=== PATIENT | male | born 1950 | race Asian ===

== ENCOUNTER 2017-01-11 07:00 | Inpatient (IN) | payer MEDICARE, MEDICAID ==
[~2017-01-11] VITALS: Ht 172.7 cm; Wt 66.5 kg
[~2017-01-11 07:00] MED LIST: ASPI-825 PO; BICIT30L PO; CALC0.253 PO; CARV12 PO; INSLAN SQ; NIFE10 PO; [UNRECOGNIZED DRUG - CODE] PO
[2017-01-11 07:37] LABS: BASOPHILS % (AUTO) 0.3 % (0.0-2.0); EOSINOPHILS % (AUTO) 3.5 % (1.0-6.0); HEMATOCRIT 29.2 % (41-53); HEMOGLOBIN 9.6 g/dL (13.5-17.5); LYMPHOCYTES # (AUTO) 1.7 K/uL (1.0-4.8); LYMPHOCYTES % (AUTO) 15.1 % (22.0-44.0); MEAN CORPUSCULAR HEMOGLOBIN 31.5 pg (26.0-34.0); MEAN CORPUSCULAR HGB CONC 32.9 G/dL (31.0-37.0); MEAN CORPUSCULAR VOLUME 96 fL (80-100); MONOCYTES # (AUTO) 0.8 K/uL (0.1-1.0); MONOCYTES % (AUTO) 7.3 % (2.0-9.0); NEUTROPHILS # (AUTO) 8.1 K/uL (1.8-7.7); NEUTROPHILS % (AUTO) 73.8 % (40.0-70.0); PLATELET COUNT (AUTO) 269 K/uL (150-450); RED BLOOD CELL COUNT(AUTO) 3.05 MIL/uL (4.50-5.90)
[2017-01-11 07:46] LABS: ANION GAP 9 mmol/L (8-16); CALCIUM, TOTAL 9.3 mg/dL (8.8-10.5); CARBON DIOXIDE 32 mmol/L (22-29); CHLORIDE 98 mmol/L (98-107); CREATININE 7.69 mg/dL (0.60-1.30); GLOMERULAR FILTR. RATE CALC 7 mL/min (>60); POTASSIUM 4.5 mmol/L (3.5-5.1); SODIUM SERUM 139 mmol/L (136-145); UREA NITROGEN, BLOOD 33 mg/dL (7-18)
[2017-01-11 07:54] LABS: ALANINE AMINOTRANSFERASE 22 U/L (12-78); ALBUMIN 3.9 g/dL (3.4-5.0); ASPARTATE AMINOTRANSFERASE 19 U/L (15-37); BILIRUBIN,TOTAL 0.8 mg/dL (0.1-1.0); CREATINE KINASE, TOTAL 61 U/L (39-308)
[2017-01-11] MEDS ORDERED: ACETAMINOPHEN 325 MG TABLET PO PRN ×2 (08:15→10:15)
[2017-01-11] MEDS ORDERED: ONDANSETRON HCL 4 MG/2 ML VIAL IVP PRN (08:15)
[2017-01-11] MEDS ORDERED: EPOETIN ALFA 10,000 UNITS/ML VIAL SQ SCH (10:00)
[2017-01-11] MEDS ORDERED: BISACODYL 10 MG RECTAL RECTAL SUPPOSITORY PR PRN (10:15)
[2017-01-11] MEDS: ASPIRIN 81 MG CHEWABLE TABLET PO SCH (10:15)
[2017-01-11] MEDS ORDERED: ALBUTEROL SULFATE 2.5 MG/0.5 ML NEB SOLUTION NEB PRN (10:15)
[2017-01-11] MEDS ORDERED: DEXTROSE 50%-WATER 25 GM/50 ML SYRINGE IVP PRN (10:15)
[2017-01-11] MEDS: VITAMIN B COMP/VIT C/FOLIC ACID CAPSULE PO SCH (12:25)
[2017-01-11 14:23] LABS: GLUCOSE,POINT OF CARE 73 MG/DL (70-110)
[2017-01-11 15:41] VITALS: BP 145/74
[2017-01-11 19:12] VITALS: BP 144/73
[2017-01-11] MEDS: CARVEDILOL 6.25 MG TABLET PO SCH (20:43)
[2017-01-11] MEDS: DOCUSATE SODIUM 100 MG CAPSULE PO SCH (20:44)
[2017-01-11] MEDS: HEPARIN SODIUM,PORCINE 5,000 UNITS/ML VIAL SQ SCH (20:44)
[2017-01-11] MEDS: INSULIN ASPART 100 UNITS/ML SQ PRN (20:47)
[2017-01-12 00:02] VITALS: BP 143/73
[2017-01-12 04:42] LABS: GLUCOSE COMMENT 1 Received Meds; GLUCOSE,POINT OF CARE 195 MG/DL (70-110)
[2017-01-12 05:03] VITALS: BP 149/89
[2017-01-12] MEDS: INSULIN ASPART 100 UNITS/ML SQ PRN ×2 (06:03→11:48)
[2017-01-12 06:37] LABS: GLUCOSE COMMENT 1 Received Meds; GLUCOSE,POINT OF CARE 144 MG/DL (70-110)
[2017-01-12 07:02] VITALS: BP 147/68
[2017-01-12] MEDS: DOCUSATE SODIUM 100 MG CAPSULE PO SCH (08:39)
[2017-01-12] MEDS: VITAMIN B COMP/VIT C/FOLIC ACID CAPSULE PO SCH (08:39)
[2017-01-12] MEDS: HEPARIN SODIUM,PORCINE 5,000 UNITS/ML VIAL SQ SCH (08:39)
[2017-01-12] MEDS: CARVEDILOL 6.25 MG TABLET PO SCH (08:39)
[2017-01-12] MEDS: ASPIRIN 81 MG CHEWABLE TABLET PO SCH (08:39)
[2017-01-12] MEDS ORDERED: PANTOPRAZOLE SODIUM 40 MG DR TABLET PO SCH (09:00)
[2017-01-12 10:56] VITALS: BP 153/74
[2017-01-12 12:13] LABS: GLUCOSE,POINT OF CARE 124 MG/DL (70-110)
[2017-01-12 15:01] VITALS: BP 163/78
[2017-01-12 18:12] LABS: GLUCOSE,POINT OF CARE 102 MG/DL (70-110)
== END 2017-01-12 16:45 | disposition home or self-care (01) | DRG 291 ==
LOC: EMS 07:00 → 5N 08:31
PROVIDERS: ADMIT Internal Medicine; ATTEND Internal Medicine
PROC: 5A1D00Z (ICD-10-PCS; principal; 2017-01-11)
DX: I13.2 Hypertensive heart and chronic kidney disease with heart failure and with stage 5 chronic kidney disease, or end stage renal disease (principal); N18.6 End stage renal disease; J96.91 Respiratory failure, unspecified with hypoxia; E11.21 Type 2 diabetes mellitus with diabetic nephropathy; E11.22 Type 2 diabetes mellitus with diabetic chronic kidney disease; E78.5 Hyperlipidemia, unspecified; E11.51 Type 2 diabetes mellitus with diabetic peripheral angiopathy without gangrene; D63.8 Anemia in other chronic diseases classified elsewhere; I50.9 Heart failure, unspecified; Z79.4 Long term (current) use of insulin; Z99.2 Dependence on renal dialysis; Z87.442 Personal history of urinary calculi; Z79.82 Long term (current) use of aspirin
CPT/HCPCS: 82962; 83540; 83550; 87081; 87340; 90935; 93005; 99291; J0885; J1644

== ENCOUNTER → 2017-06-27 | Outpatient (CLI) | payer MEDICARE, MEDICAID | END | disposition home or self-care (01) | LOC: RADPV 15:22 | PROVIDERS: ATTEND Hospitalist | DX: R76.11 Nonspecific reaction to tuberculin skin test without active tuberculosis (principal) ==

== ENCOUNTER 2019-06-03 05:58 | Inpatient (IN) | payer MEDICARE, MEDICAID ==
[~2019-06-03] VITALS: Ht 162.6 cm; Wt 54.1 kg
[~2019-06-03 05:58] MED LIST changes: +FOLI1CAP2 PO; +LEVO500 PO; +SEVE800T17 PO
[2019-06-03] MEDS ORDERED: ACETAMINOPHEN 650 MG/ISO-OSM 65 ML IV ONE (06:30)
[2019-06-03] MEDS ORDERED: SODIUM CHLORIDE 0.9% 1,800 ML IV ONE (06:30)
[2019-06-03 06:38] LABS: BASOPHILS % (AUTO) 0.7 % (0.0-2.0); EOSINOPHILS % (AUTO) 0.8 % (1.0-6.0); HEMATOCRIT 34.9 % (41-53); HEMOGLOBIN 11.9 g/dL (13.5-17.5); LYMPHOCYTES # (AUTO) 1.4 K/uL (1.0-4.8); LYMPHOCYTES % (AUTO) 13.5 % (22.0-44.0); MEAN CORPUSCULAR HEMOGLOBIN 33.5 pg (26.0-34.0); MEAN CORPUSCULAR HGB CONC 34.2 G/dL (31.0-37.0); MEAN CORPUSCULAR VOLUME 98 fL (80-100); MONOCYTES # (AUTO) 0.9 K/uL (0.1-1.0); MONOCYTES % (AUTO) 8.9 % (2.0-9.0); NEUTROPHILS # (AUTO) 7.6 K/uL (1.8-7.7); NEUTROPHILS % (AUTO) 76.1 % (40.0-70.0); PLATELET COUNT (AUTO) 179 K/uL (150-450); RED BLOOD CELL COUNT(AUTO) 3.55 MIL/uL (4.50-5.90); RED CELL DISTRIBUTION WIDTH 13.2 % (11.5-14.5)
[2019-06-03 06:48] LABS: CALCIUM, TOTAL 8.6 mg/dL (8.8-10.5); CREATININE 12.38 mg/dL (0.60-1.30)
[2019-06-03 06:55] LABS: INR 1.1 (0.9-1.1)
[2019-06-03 06:56] LABS: LACTIC ACID 0.9 mmol/L (0.4-2.0)
[2019-06-03 07:13] LABS: ALBUMIN 3.9 g/dL (3.4-5.0); BILIRUBIN,TOTAL 0.6 mg/dL (0.1-1.0); TOTAL PROTEIN, SERUM 7.5 g/dL (6.4-8.2)
[2019-06-03] MEDS ORDERED: NIFEdipine 10 MG CAPSULE PO ONE (07:15)
[2019-06-03] MEDS ORDERED: NITROGLYCERIN 2% (1 GM=INCH) PACKET TP ONE (07:15)
[2019-06-03] MEDS ORDERED: CARVEDILOL 3.125 MG TABLET PO ONE (07:15)
[2019-06-03] MEDS ORDERED: CefTRIAXone 1 GM/DEXTROSE 50 ML IV ONE (07:15)
[2019-06-03] MEDS ORDERED: AZITHROMYCIN 500 MG/NS 250 ML IV ONE (07:15)
[2019-06-03 11:33] VITALS: BP 173/83
[2019-06-03 15:46] VITALS: BP 231/115
[2019-06-03] MEDS: CloNIDine HCL 0.1 MG TABLET PO PRN (16:22)
[2019-06-03] MEDS: ACETAMINOPHEN 325 MG TABLET PO PRN (16:22)
[2019-06-03] MEDS ORDERED: NIFE60TA82 PO (16:52)
[2019-06-03] MEDS ORDERED: SIMV20TA6 PO (16:52)
[2019-06-03] MEDS ORDERED: FOLI0.8T22 PO (16:52)
[2019-06-03] MEDS ORDERED: LOSA50TA64 PO (16:52)
[2019-06-03 16:56] LABS: GLUCOMETER DEV NAME(LOC) 5N.1; GLUCOSE,POINT OF CARE 86 MG/DL (70-110)
[2019-06-03] MEDS: LABETALOL HCL 5 MG/ML 20 ML VIAL IVP PRN ×2 (17:13→18:50)
[2019-06-03] MEDS ORDERED: SODIUM CHLORIDE 0.9% 100 ML ONE (18:43)
[2019-06-03] MEDS ORDERED: IOVERSOL 320 MG/ML 100 ML VIAL ONE (18:43)
[2019-06-03] MEDS ORDERED: LABETALOL HCL 5 MG/ML 20 ML VIAL IVP PRN (19:30)
[2019-06-03 19:43] LABS: BASOPHILS % (AUTO) 0.5 % (0.0-2.0); EOSINOPHILS % (AUTO) 0.4 % (1.0-6.0); HEMATOCRIT 36.1 % (41-53); HEMOGLOBIN 12.2 g/dL (13.5-17.5); LYMPHOCYTES % (AUTO) 8.8 % (22.0-44.0); MEAN CORPUSCULAR HEMOGLOBIN 33.5 pg (26.0-34.0); MEAN CORPUSCULAR HGB CONC 33.8 G/dL (31.0-37.0); MEAN CORPUSCULAR VOLUME 99 fL (80-100); MONOCYTES % (AUTO) 9.2 % (2.0-9.0); NEUTROPHILS # (AUTO) 8.8 K/uL (1.8-7.7); NEUTROPHILS % (AUTO) 81.1 % (40.0-70.0); PLATELET COUNT (AUTO) 156 K/uL (150-450); RED BLOOD CELL COUNT(AUTO) 3.64 MIL/uL (4.50-5.90); RED CELL DISTRIBUTION WIDTH 13.3 % (11.5-14.5)
[2019-06-03 19:57] LABS: INR 1.1 (0.9-1.1); PROTHROMBIN TIME 11.1 SEC (9.4-11.6)
[2019-06-03 20:00] LABS: PLATELET MORPHOLOGY COMMENT NORMAL
[2019-06-03 20:06] VITALS: BP 221/109
[2019-06-03 20:12] LABS: ALANINE AMINOTRANSFERASE 20 U/L (12-78); ALBUMIN 3.9 g/dL (3.4-5.0); ALKALINE PHOSPHATASE 121 U/L (46-116); ANION GAP 14 mmol/L (8-16); ASPARTATE AMINOTRANSFERASE 22 U/L (15-37); BILIRUBIN,TOTAL 0.9 mg/dL (0.1-1.0); CALCIUM, TOTAL 9.1 mg/dL (8.8-10.5); CARBON DIOXIDE 24 mmol/L (22-29); CHLORIDE 97 mmol/L (98-107); GLOMERULAR FILTR. RATE CALC 8 mL/min (>60); GLUCOSE,RANDOM 91 mg/dL (70-110); HCG,QUANTITATIVE < 1 mIU/mL (0-6); POTASSIUM 3.6 mmol/L (3.5-5.1); SODIUM SERUM 135 mmol/L (136-145); TOTAL PROTEIN, SERUM 7.7 g/dL (6.4-8.2); UREA NITROGEN, BLOOD 22 mg/dL (7-18)
[2019-06-03] MEDS: NiCARDipine HCL 25 MG in DEXTROSE 5%-WATER 240 ML IV PRN (20:34)
[2019-06-03] MEDS ORDERED: SODIUM CHLORIDE 0.9% 250 ML IV ONE (20:45)
[2019-06-03] MEDS: INSULIN GLARGINE,HUM.REC.ANLOG 100 UNITS/ML SQ SCH (21:00)
[2019-06-03] MEDS: CARVEDILOL 12.5 MG TABLET PO SCH (21:00)
[2019-06-03] MEDS: CALCIUM CIT/VITAMIN D3 200 MG-250 UNITS TABLET PO SCH (21:00)
[2019-06-03] MEDS: ACETAMINOPHEN 650 MG/ISO-OSM 65 ML IV SCH (21:05)
[2019-06-03] MEDS: OXYGEN THERAPY IH SCH (21:09)
[2019-06-04] VITALS (7 sets, daily range): BP systolic 128–189; BP diastolic 59–80
[2019-06-04] MEDS: ACETAMINOPHEN 650 MG/ISO-OSM 65 ML IV SCH ×3 (02:37→17:41)
[2019-06-04 04:06] LABS: GLUCOSE,POINT OF CARE 104 MG/DL (70-110)
[2019-06-04] MEDS: NiCARDipine HCL 25 MG in DEXTROSE 5%-WATER 240 ML IV PRN (05:38)
[2019-06-04 06:56] LABS: GLUCOSE,POINT OF CARE 74 MG/DL (70-110)
[2019-06-04 06:56] LABS: GLUCOSE,POINT OF CARE 105 MG/DL (70-110)
[2019-06-04 07:11] LABS: BASOPHILS % (AUTO) 0.6 % (0.0-2.0); EOSINOPHILS % (AUTO) 1.4 % (1.0-6.0); HEMATOCRIT 35.2 % (41-53); HEMOGLOBIN 12.2 g/dL (13.5-17.5); LYMPHOCYTES % (AUTO) 9.9 % (22.0-44.0); MEAN CORPUSCULAR HEMOGLOBIN 33.8 pg (26.0-34.0); MEAN CORPUSCULAR HGB CONC 34.7 G/dL (31.0-37.0); MEAN CORPUSCULAR VOLUME 98 fL (80-100); MONOCYTES # (AUTO) 1.2 K/uL (0.1-1.0); MONOCYTES % (AUTO) 12.4 % (2.0-9.0); NEUTROPHILS # (AUTO) 7.3 K/uL (1.8-7.7); NEUTROPHILS % (AUTO) 75.7 % (40.0-70.0); PLATELET COUNT (AUTO) 154 K/uL (150-450); RED CELL DISTRIBUTION WIDTH 13.4 % (11.5-14.5)
[2019-06-04 07:23] LABS: CALCIUM, TOTAL 8.5 mg/dL (8.8-10.5); CREATININE 8.9 mg/dL (0.60-1.30); POTASSIUM 4.4 mmol/L (3.5-5.1)
[2019-06-04] MEDS: OXYGEN THERAPY IH SCH ×2 (08:00→21:09)
[2019-06-04] MEDS: CefTRIAXone 1 GM/DEXTROSE 50 ML IV SCH (08:55)
[2019-06-04] MEDS: CloNIDine HCL 0.1 MG TABLET PO PRN ×2 (08:56→17:48)
[2019-06-04] MEDS: SEVELAMER CARBONATE 800 MG TABLET PO SCH ×3 (08:57→17:40)
[2019-06-04] MEDS: SIMVASTATIN 20 MG TABLET PO SCH (08:57)
[2019-06-04] MEDS: VITAMIN B COMP/VIT C/FOLIC ACID CAPSULE PO SCH (08:57)
[2019-06-04] MEDS: ASPIRIN 81 MG CHEWABLE TABLET PO SCH (08:57)
[2019-06-04] MEDS: CARVEDILOL 12.5 MG TABLET PO SCH ×2 (08:58→21:08)
[2019-06-04] MEDS: LOSARTAN POTASSIUM 50 MG TABLET PO SCH (08:59)
[2019-06-04] MEDS: NIFEdipine 60 MG ER TABLET PO SCH (08:59)
[2019-06-04] MEDS: CALCIUM CIT/VITAMIN D3 200 MG-250 UNITS TABLET PO SCH ×3 (09:00→23:22)
[2019-06-04] MEDS ORDERED: AZITHROMYCIN 500 MG/NS 250 ML IV SCH (09:00)
[2019-06-04 13:00] LABS: GLUCOSE,POINT OF CARE 247 MG/DL (70-110)
[2019-06-04] MEDS ORDERED: DEXTROSE 50%-WATER 25 GM/50 ML SYRINGE IVP PRN ×2 (15:15)
[2019-06-04] MEDS: INSULIN LISPRO 100 UNITS/ML SQ PRN (17:42)
[2019-06-04 17:46] LABS: GLUCOSE,POINT OF CARE 165 MG/DL (70-110)
[2019-06-04 20:31] LABS: GLUCOSE,POINT OF CARE 127 MG/DL (70-110)
[2019-06-04] MEDS: INSULIN GLARGINE,HUM.REC.ANLOG 100 UNITS/ML SQ SCH (21:05)
[2019-06-04] MEDS: ACETAMINOPHEN 325 MG TABLET PO PRN (23:35)
[2019-06-05] VITALS (9 sets, daily range): BP systolic 147–175; BP diastolic 69–97
[2019-06-05] MEDS ORDERED: SODIUM CHLORIDE 0.9% 100 ML ONE (00:35)
[2019-06-05] MEDS ORDERED: IOVERSOL 350 MG/ML 100 ML VIAL ONE (00:35)
[2019-06-05] MEDS ORDERED: SODIUM CHLORIDE 0.9% 250 ML IV ONE (07:57)
[2019-06-05] MEDS: OXYGEN THERAPY IH SCH ×2 (08:00→20:39)
[2019-06-05] MEDS: CefTRIAXone 1 GM/DEXTROSE 50 ML IV SCH (08:05)
[2019-06-05] MEDS: VITAMIN B COMP/VIT C/FOLIC ACID CAPSULE PO SCH (08:12)
[2019-06-05] MEDS: SEVELAMER CARBONATE 800 MG TABLET PO SCH ×2 (08:12→20:39)
[2019-06-05] MEDS: SIMVASTATIN 20 MG TABLET PO SCH (08:13)
[2019-06-05] MEDS: ASPIRIN 81 MG CHEWABLE TABLET PO SCH (08:13)
[2019-06-05] MEDS: CALCIUM CIT/VITAMIN D3 200 MG-250 UNITS TABLET PO SCH ×3 (08:13→21:00)
[2019-06-05] MEDS: NIFEdipine 60 MG ER TABLET PO SCH (08:13)
[2019-06-05] MEDS: ACETAMINOPHEN 325 MG TABLET PO PRN ×2 (08:13→17:16)
[2019-06-05] MEDS: CARVEDILOL 12.5 MG TABLET PO SCH ×2 (08:13→20:39)
[2019-06-05] MEDS: LOSARTAN POTASSIUM 50 MG TABLET PO SCH (08:14)
[2019-06-05 08:20] LABS: BASOPHILS % (AUTO) 0.6 % (0.0-2.0); EOSINOPHILS % (AUTO) 0.3 % (1.0-6.0); HEMATOCRIT 33.5 % (41-53); HEMOGLOBIN 11.5 g/dL (13.5-17.5); LYMPHOCYTES # (AUTO) 0.8 K/uL (1.0-4.8); LYMPHOCYTES % (AUTO) 8.6 % (22.0-44.0); MEAN CORPUSCULAR HEMOGLOBIN 33.3 pg (26.0-34.0); MEAN CORPUSCULAR HGB CONC 34.3 G/dL (31.0-37.0); MEAN CORPUSCULAR VOLUME 97 fL (80-100); MONOCYTES # (AUTO) 1.1 K/uL (0.1-1.0); MONOCYTES % (AUTO) 10.8 % (2.0-9.0); NEUTROPHILS # (AUTO) 7.9 K/uL (1.8-7.7); NEUTROPHILS % (AUTO) 79.7 % (40.0-70.0); PLATELET COUNT (AUTO) 132 K/uL (150-450); RED BLOOD CELL COUNT(AUTO) 3.46 MIL/uL (4.50-5.90); RED CELL DISTRIBUTION WIDTH 13.5 % (11.5-14.5)
[2019-06-05 08:42] LABS: ALBUMIN 3.3 g/dL (3.4-5.0); BILIRUBIN,TOTAL 0.5 mg/dL (0.1-1.0); CALCIUM, TOTAL 8.9 mg/dL (8.8-10.5); CREATININE 11.71 mg/dL (0.60-1.30); POTASSIUM 4.9 mmol/L (3.5-5.1); TOTAL PROTEIN, SERUM 7.1 g/dL (6.4-8.2)
[2019-06-05] MEDS ORDERED: *CLINICAL-CEFEPIME DOSING CLINICAL ONE (09:15)
[2019-06-05 09:16] LABS: GLUCOMETER DEV NAME(LOC) 5S.1; GLUCOSE,POINT OF CARE 96 MG/DL (70-110)
[2019-06-05 09:16] LABS: GLUCOMETER DEV NAME(LOC) 5S.1; GLUCOSE,POINT OF CARE 84 MG/DL (70-110)
[2019-06-05] MEDS ORDERED: VANCOMYCIN HCL 1 GM/D5% WATER 200 ML IV PRN (09:30)
[2019-06-05] MEDS ORDERED: VANCOMYCIN HCL 1.25 GM in DEXTROSE 5%-WATER 250 ML IV ONE (10:00)
[2019-06-05 11:31] LABS: GLUCOMETER DEV NAME(LOC) 5S.1; GLUCOSE,POINT OF CARE 76 MG/DL (70-110)
[2019-06-05] MEDS ORDERED: CEFEPIME HCL 1 GM in DEXTROSE 5%-WATER 50 ML IV ONE (14:00)
[2019-06-05] MEDS ORDERED: LEVOFLOXACIN 750 MG/D5% WATER 150 ML IV ONE (15:00)
[2019-06-05] MEDS: CEFEPIME HCL 0.5 GM in DEXTROSE 5%-WATER 50 ML IV SCH (17:02)
[2019-06-05 17:59] LABS: ABG A-A DIFF O2 117.2 mmHg (10-20.0); ABG BASE EXCESS 2.7 mmol/L (-2.0-3.0); ABG CARBOXYHEMOGLOBIN 1.2 % (0.0-1.5); ABG METHEMOGLOBIN 0.3 % (0.0-1.5); ABG OXYGEN CONTENT 17.5 mL/dL (15.0-23.0); ABG OXYGEN SATURATION 90.6 % (95.0-98.0); ABG OXYHEMOGLOBIN 89.2 % (94.0-100.0); ABG PCO2 38 mmHg (35-45); ABG PH 7.461 (7.35-7.450); PO2, ARTERIAL BG 64.8 mmHg (79.0-87.0); SOURCE, BLOOD GAS ARTERIAL; TEMPERATURE, FAHRENHEIT, BG 101.8 FAHREN (96.0-98.6)
[2019-06-05 18:00] LABS: SITE, BLOOD GAS RT RADIAL
[2019-06-05 18:01] LABS: O2 DEVICE,BLOOD GAS CANNULA (ROOM AIR)
[2019-06-05 20:56] LABS: GLUCOMETER DEV NAME(LOC) 5S.2A; GLUCOSE,POINT OF CARE 129 MG/DL (70-110)
[2019-06-05] MEDS: INSULIN GLARGINE,HUM.REC.ANLOG 100 UNITS/ML SQ SCH (21:00)
[2019-06-06] VITALS (7 sets, daily range): BP systolic 112–155; BP diastolic 50–74
[2019-06-06] MEDS: ACETAMINOPHEN 325 MG TABLET PO PRN ×2 (00:30→15:43)
[2019-06-06] MEDS ORDERED: 0.9% SODIUM CHLORIDE 5 ML NEB SOLUTION NEB ONE ×2 (05:30→09:01)
[2019-06-06] MEDS ORDERED: ONDANSETRON HCL 4 MG/2 ML VIAL IM PRN (05:30)
[2019-06-06] MEDS: INSULIN LISPRO 100 UNITS/ML SQ PRN ×3 (06:34→21:03)
[2019-06-06 06:59] LABS: BASOPHILS % (AUTO) 0.3 % (0.0-2.0); EOSINOPHILS % (AUTO) 0.5 % (1.0-6.0); HEMATOCRIT 35.8 % (41-53); HEMOGLOBIN 12.2 g/dL (13.5-17.5); LYMPHOCYTES # (AUTO) 0.6 K/uL (1.0-4.8); LYMPHOCYTES % (AUTO) 5.8 % (22.0-44.0); MEAN CORPUSCULAR HEMOGLOBIN 33.1 pg (26.0-34.0); MEAN CORPUSCULAR HGB CONC 34.1 G/dL (31.0-37.0); MEAN CORPUSCULAR VOLUME 97 fL (80-100); MONOCYTES # (AUTO) 1.2 K/uL (0.1-1.0); MONOCYTES % (AUTO) 11.8 % (2.0-9.0); NEUTROPHILS # (AUTO) 8.3 K/uL (1.8-7.7); NEUTROPHILS % (AUTO) 81.6 % (40.0-70.0); PLATELET COUNT (AUTO) 167 K/uL (150-450); RED BLOOD CELL COUNT(AUTO) 3.69 MIL/uL (4.50-5.90)
[2019-06-06 07:19] LABS: CALCIUM, TOTAL 9.3 mg/dL (8.8-10.5); CREATININE 8.08 mg/dL (0.60-1.30); PHOSPHORUS 3.3 mg/dL (2.5-4.9); POTASSIUM 5.1 mmol/L (3.5-5.1)
[2019-06-06 07:55] LABS: VANCOMYCIN,RANDOM 11.5 mcg/mL (25.0-50.0)
[2019-06-06 08:39] LABS: INFLUENZA TYPE A NEGATIVE FOR TYPE A (NEGATIVE); INFLUENZA TYPE B NEGATIVE FOR TYPE B (NEGATIVE)
[2019-06-06] MEDS ORDERED: VANCOMYCIN HCL 1 GM/D5% WATER 200 ML IV ONE (09:00)
[2019-06-06] MEDS: ALBUTEROL SULFATE 2.5 MG/0.5 ML NEB SOLUTION NEB PRN ×2 (09:05→21:30)
[2019-06-06] MEDS: SEVELAMER CARBONATE 800 MG TABLET PO SCH ×3 (09:40→18:00)
[2019-06-06] MEDS: OXYGEN THERAPY IH SCH ×2 (09:41→21:00)
[2019-06-06] MEDS: ASPIRIN 81 MG CHEWABLE TABLET PO SCH (09:41)
[2019-06-06] MEDS: CALCIUM CIT/VITAMIN D3 200 MG-250 UNITS TABLET PO SCH ×3 (09:41→21:00)
[2019-06-06] MEDS: CARVEDILOL 12.5 MG TABLET PO SCH ×2 (09:41→21:00)
[2019-06-06] MEDS: VITAMIN B COMP/VIT C/FOLIC ACID CAPSULE PO SCH (09:42)
[2019-06-06] MEDS: SIMVASTATIN 20 MG TABLET PO SCH (09:42)
[2019-06-06] MEDS: LOSARTAN POTASSIUM 50 MG TABLET PO SCH (09:42)
[2019-06-06] MEDS: NIFEdipine 60 MG ER TABLET PO SCH (09:42)
[2019-06-06 10:45] LABS: GLUCOMETER DEV NAME(LOC) 5S.1; GLUCOSE,POINT OF CARE 78 MG/DL (70-110)
[2019-06-06 10:45] LABS: GLUCOMETER DEV NAME(LOC) 5S.1; GLUCOSE,POINT OF CARE 150 MG/DL (70-110)
[2019-06-06] MEDS: CEFEPIME HCL 0.5 GM in DEXTROSE 5%-WATER 50 ML IV SCH (15:43)
[2019-06-06] MEDS: INSULIN GLARGINE,HUM.REC.ANLOG 100 UNITS/ML SQ SCH (21:03)
[2019-06-06 21:25] LABS: GLUCOMETER DEV NAME(LOC) 5S.1; GLUCOSE,POINT OF CARE 221 MG/DL (70-110)
[2019-06-07] VITALS (7 sets, daily range): BP systolic 128–156; BP diastolic 61–74
[2019-06-07] MEDS ORDERED: 0.9% SODIUM CHLORIDE 5 ML NEB SOLUTION NEB ONE (02:36)
[2019-06-07] MEDS: ALBUTEROL SULFATE 2.5 MG/0.5 ML NEB SOLUTION NEB PRN (02:40)
[2019-06-07] MEDS: ACETAMINOPHEN 325 MG TABLET PO PRN (04:12)
[2019-06-07 07:05] LABS: GLUCOMETER DEV NAME(LOC) 5S.1; GLUCOSE,POINT OF CARE 138 MG/DL (70-110)
[2019-06-07 07:43] LABS: BASOPHILS % (AUTO) 0.6 % (0.0-2.0); EOSINOPHILS % (AUTO) 0.4 % (1.0-6.0); HEMATOCRIT 32.7 % (41-53); HEMOGLOBIN 11.3 g/dL (13.5-17.5); LYMPHOCYTES # (AUTO) 0.8 K/uL (1.0-4.8); MEAN CORPUSCULAR HEMOGLOBIN 33.2 pg (26.0-34.0); MEAN CORPUSCULAR HGB CONC 34.7 G/dL (31.0-37.0); MEAN CORPUSCULAR VOLUME 96 fL (80-100); MONOCYTES # (AUTO) 0.9 K/uL (0.1-1.0); MONOCYTES % (AUTO) 11.6 % (2.0-9.0); NEUTROPHILS # (AUTO) 6.2 K/uL (1.8-7.7); NEUTROPHILS % (AUTO) 77.4 % (40.0-70.0); PLATELET COUNT (AUTO) 144 K/uL (150-450); RED BLOOD CELL COUNT(AUTO) 3.42 MIL/uL (4.50-5.90); RED CELL DISTRIBUTION WIDTH 13.1 % (11.5-14.5)
[2019-06-07] MEDS ORDERED: SODIUM CHLORIDE 0.9% 2,000 ML IV ONE (08:00)
[2019-06-07 08:18] LABS: BILIRUBIN,TOTAL 0.4 mg/dL (0.1-1.0); CALCIUM, TOTAL 9.4 mg/dL (8.8-10.5); CREATININE 11.25 mg/dL (0.60-1.30); POTASSIUM 4.7 mmol/L (3.5-5.1); VANCOMYCIN,RANDOM 29.3 mcg/mL (25.0-50.0)
[2019-06-07] MEDS: LOSARTAN POTASSIUM 50 MG TABLET PO SCH (09:00)
[2019-06-07] MEDS: CALCIUM CIT/VITAMIN D3 200 MG-250 UNITS TABLET PO SCH ×3 (09:44→20:22)
[2019-06-07] MEDS: SEVELAMER CARBONATE 800 MG TABLET PO SCH ×3 (09:44→17:49)
[2019-06-07] MEDS: SIMVASTATIN 20 MG TABLET PO SCH (09:44)
[2019-06-07] MEDS: VITAMIN B COMP/VIT C/FOLIC ACID CAPSULE PO SCH (09:44)
[2019-06-07] MEDS: ASPIRIN 81 MG CHEWABLE TABLET PO SCH (09:44)
[2019-06-07] MEDS: OXYGEN THERAPY IH SCH ×2 (09:44→20:22)
[2019-06-07] MEDS: CARVEDILOL 12.5 MG TABLET PO SCH ×2 (12:16→20:22)
[2019-06-07] MEDS ORDERED: LEVOFLOXACIN 500 MG/D5% WATER 100 ML IV SCH (15:00)
[2019-06-07] MEDS: CEFEPIME HCL 0.5 GM in DEXTROSE 5%-WATER 50 ML IV SCH (16:13)
[2019-06-07] MEDS: NIFEdipine 60 MG ER TABLET PO SCH (16:13)
[2019-06-07] MEDS: AZITHROMYCIN 250 MG TABLET PO SCH (16:13)
[2019-06-07] MEDS: INSULIN LISPRO 100 UNITS/ML SQ PRN ×2 (17:51→20:28)
[2019-06-07 20:16] LABS: GLUCOMETER DEV NAME(LOC) 5N.1; GLUCOSE,POINT OF CARE 217 MG/DL (70-110)
[2019-06-07 20:16] LABS: GLUCOMETER DEV NAME(LOC) 5S.1; GLUCOSE,POINT OF CARE 150 MG/DL (70-110)
[2019-06-07] MEDS: INSULIN GLARGINE,HUM.REC.ANLOG 100 UNITS/ML SQ SCH (20:26)
[2019-06-08 04:02] VITALS: BP 121/62
[2019-06-08 04:11] LABS: GLUCOMETER DEV NAME(LOC) 5S.2A; GLUCOSE,POINT OF CARE 158 MG/DL (70-110)
[2019-06-08 04:11] LABS: GLUCOMETER DEV NAME(LOC) 5S.2A; GLUCOSE,POINT OF CARE 147 MG/DL (70-110)
[2019-06-08 04:11] LABS: GLUCOMETER DEV NAME(LOC) 5S.2A; GLUCOSE,POINT OF CARE 230 MG/DL (70-110)
[2019-06-08 04:11] LABS: GLUCOMETER DEV NAME(LOC) 5N.1; GLUCOSE,POINT OF CARE 169 MG/DL (70-110)
[2019-06-08 07:51] VITALS: BP 137/64
[2019-06-08 08:13] LABS: ALBUMIN 3.2 g/dL (3.4-5.0); BILIRUBIN,TOTAL 0.5 mg/dL (0.1-1.0); CALCIUM, TOTAL 9.7 mg/dL (8.8-10.5); CREATININE 7.89 mg/dL (0.60-1.30); POTASSIUM 4.1 mmol/L (3.5-5.1); TOTAL PROTEIN, SERUM 7.6 g/dL (6.4-8.2); VANCOMYCIN,RANDOM 21.1 mcg/mL (25.0-50.0)
[2019-06-08 08:21] LABS: GLUCOMETER DEV NAME(LOC) 5N.1; GLUCOSE,POINT OF CARE 92 MG/DL (70-110)
[2019-06-08 08:35] LABS: BASOPHILS % (AUTO) 0.4 % (0.0-2.0); EOSINOPHILS % (AUTO) 1.5 % (1.0-6.0); HEMATOCRIT 33.5 % (41-53); HEMOGLOBIN 11.5 g/dL (13.5-17.5); LYMPHOCYTES # (AUTO) 1.4 K/uL (1.0-4.8); LYMPHOCYTES % (AUTO) 15.2 % (22.0-44.0); MEAN CORPUSCULAR HEMOGLOBIN 33.1 pg (26.0-34.0); MEAN CORPUSCULAR HGB CONC 34.4 G/dL (31.0-37.0); MEAN CORPUSCULAR VOLUME 96 fL (80-100); MONOCYTES # (AUTO) 1.4 K/uL (0.1-1.0); NEUTROPHILS # (AUTO) 6.2 K/uL (1.8-7.7); NEUTROPHILS % (AUTO) 67.9 % (40.0-70.0); PLATELET COUNT (AUTO) 176 K/uL (150-450); RED BLOOD CELL COUNT(AUTO) 3.47 MIL/uL (4.50-5.90); RED CELL DISTRIBUTION WIDTH 13.3 % (11.5-14.5)
[2019-06-08] MEDS: LOSARTAN POTASSIUM 50 MG TABLET PO SCH (08:56)
[2019-06-08] MEDS: NIFEdipine 60 MG ER TABLET PO SCH (08:56)
[2019-06-08] MEDS: CALCIUM CIT/VITAMIN D3 200 MG-250 UNITS TABLET PO SCH ×3 (08:56→21:21)
[2019-06-08] MEDS: SEVELAMER CARBONATE 800 MG TABLET PO SCH ×3 (08:56→17:45)
[2019-06-08] MEDS: VITAMIN B COMP/VIT C/FOLIC ACID CAPSULE PO SCH (08:56)
[2019-06-08] MEDS: ASPIRIN 81 MG CHEWABLE TABLET PO SCH (08:56)
[2019-06-08] MEDS: SIMVASTATIN 20 MG TABLET PO SCH (08:56)
[2019-06-08] MEDS: CARVEDILOL 12.5 MG TABLET PO SCH ×2 (08:56→21:21)
[2019-06-08] MEDS: AZITHROMYCIN 250 MG TABLET PO SCH (08:56)
[2019-06-08] MEDS: OXYGEN THERAPY IH SCH (09:06)
[2019-06-08 11:43] VITALS: BP 111/57
[2019-06-08] MEDS: INSULIN LISPRO 100 UNITS/ML SQ PRN ×3 (12:15→21:24)
[2019-06-08 15:43] VITALS: BP 125/61
[2019-06-08] MEDS ORDERED: SODIUM CHLORIDE 0.9% 100 ML ONE (15:50)
[2019-06-08] MEDS: CEFEPIME HCL 0.5 GM in DEXTROSE 5%-WATER 50 ML IV SCH (15:56)
[2019-06-08 16:16] LABS: GLUCOMETER DEV NAME(LOC) 5N.1; GLUCOSE,POINT OF CARE 216 MG/DL (70-110)
[2019-06-08 19:59] VITALS: BP 134/65
[2019-06-08 20:16] LABS: GLUCOMETER DEV NAME(LOC) 5S.2A; GLUCOSE,POINT OF CARE 201 MG/DL (70-110)
[2019-06-08] MEDS: INSULIN GLARGINE,HUM.REC.ANLOG 100 UNITS/ML SQ SCH (21:23)
[2019-06-08 23:36] LABS: GLUCOMETER DEV NAME(LOC) 5S.1; GLUCOSE,POINT OF CARE 236 MG/DL (70-110)
[2019-06-09] VITALS (7 sets, daily range): BP systolic 123–137; BP diastolic 57–69
[2019-06-09 06:45] LABS: BASOPHILS % (AUTO) 0.4 % (0.0-2.0); EOSINOPHILS % (AUTO) 2.3 % (1.0-6.0); HEMATOCRIT 33.6 % (41-53); HEMOGLOBIN 11.3 g/dL (13.5-17.5); LYMPHOCYTES # (AUTO) 1.5 K/uL (1.0-4.8); LYMPHOCYTES % (AUTO) 14.5 % (22.0-44.0); MEAN CORPUSCULAR HEMOGLOBIN 32.7 pg (26.0-34.0); MEAN CORPUSCULAR HGB CONC 33.8 G/dL (31.0-37.0); MEAN CORPUSCULAR VOLUME 97 fL (80-100); MONOCYTES # (AUTO) 1.3 K/uL (0.1-1.0); MONOCYTES % (AUTO) 12.9 % (2.0-9.0); NEUTROPHILS # (AUTO) 7.1 K/uL (1.8-7.7); NEUTROPHILS % (AUTO) 69.9 % (40.0-70.0); PLATELET COUNT (AUTO) 198 K/uL (150-450); RED BLOOD CELL COUNT(AUTO) 3.47 MIL/uL (4.50-5.90); RED CELL DISTRIBUTION WIDTH 13.2 % (11.5-14.5)
[2019-06-09 07:12] LABS: CALCIUM, TOTAL 9.4 mg/dL (8.8-10.5); CREATININE 9.69 mg/dL (0.60-1.30); POTASSIUM 4.1 mmol/L (3.5-5.1); VANCOMYCIN,RANDOM 19.6 mcg/mL (25.0-50.0)
[2019-06-09] MEDS: NIFEdipine 60 MG ER TABLET PO SCH (08:54)
[2019-06-09] MEDS: SIMVASTATIN 20 MG TABLET PO SCH (08:54)
[2019-06-09] MEDS: CALCIUM CIT/VITAMIN D3 200 MG-250 UNITS TABLET PO SCH ×3 (08:54→22:40)
[2019-06-09] MEDS: LOSARTAN POTASSIUM 50 MG TABLET PO SCH (08:54)
[2019-06-09] MEDS: VITAMIN B COMP/VIT C/FOLIC ACID CAPSULE PO SCH (08:54)
[2019-06-09] MEDS: CARVEDILOL 12.5 MG TABLET PO SCH ×2 (08:54→22:40)
[2019-06-09] MEDS: AZITHROMYCIN 250 MG TABLET PO SCH (08:55)
[2019-06-09] MEDS: ASPIRIN 81 MG CHEWABLE TABLET PO SCH (09:00)
[2019-06-09] MEDS: SEVELAMER CARBONATE 800 MG TABLET PO SCH ×3 (12:00→17:55)
[2019-06-09] MEDS: INSULIN LISPRO 100 UNITS/ML SQ PRN ×2 (13:16→18:01)
[2019-06-09 14:41] LABS: GLUCOMETER DEV NAME(LOC) 5S.1; GLUCOSE,POINT OF CARE 159 MG/DL (70-110)
[2019-06-09 14:41] LABS: GLUCOMETER DEV NAME(LOC) 5S.1; GLUCOSE,POINT OF CARE 119 MG/DL (70-110)
[2019-06-09] MEDS: CEFEPIME HCL 0.5 GM in DEXTROSE 5%-WATER 50 ML IV SCH (16:45)
[2019-06-09] MEDS: INSULIN GLARGINE,HUM.REC.ANLOG 100 UNITS/ML SQ SCH (22:41)
[2019-06-10 01:02] LABS: GLUCOMETER DEV NAME(LOC) 5S.1; GLUCOSE,POINT OF CARE 125 MG/DL (70-110)
[2019-06-10 04:22] VITALS: BP 131/73
[2019-06-10 06:27] LABS: GLUCOMETER DEV NAME(LOC) 5S.2A; GLUCOSE,POINT OF CARE 210 MG/DL (70-110)
[2019-06-10 07:12] LABS: BASOPHILS % (AUTO) 0.6 % (0.0-2.0); EOSINOPHILS % (AUTO) 2.3 % (1.0-6.0); HEMATOCRIT 32.6 % (41-53); HEMOGLOBIN 11.1 g/dL (13.5-17.5); LYMPHOCYTES # (AUTO) 1.9 K/uL (1.0-4.8); LYMPHOCYTES % (AUTO) 15.6 % (22.0-44.0); MEAN CORPUSCULAR HEMOGLOBIN 32.4 pg (26.0-34.0); MEAN CORPUSCULAR HGB CONC 33.9 G/dL (31.0-37.0); MEAN CORPUSCULAR VOLUME 96 fL (80-100); MONOCYTES # (AUTO) 1.2 K/uL (0.1-1.0); NEUTROPHILS # (AUTO) 8.5 K/uL (1.8-7.7); NEUTROPHILS % (AUTO) 71.5 % (40.0-70.0); PLATELET COUNT (AUTO) 250 K/uL (150-450); RED BLOOD CELL COUNT(AUTO) 3.41 MIL/uL (4.50-5.90); RED CELL DISTRIBUTION WIDTH 13.3 % (11.5-14.5)
[2019-06-10 07:26] LABS: CALCIUM, TOTAL 9.5 mg/dL (8.8-10.5); CREATININE 11.68 mg/dL (0.60-1.30); POTASSIUM 4.3 mmol/L (3.5-5.1)
[2019-06-10] MEDS: OXYGEN THERAPY IH SCH ×2 (08:00→20:00)
[2019-06-10 08:34] VITALS: BP 130/77
[2019-06-10] MEDS: SEVELAMER CARBONATE 800 MG TABLET PO SCH ×3 (10:53→18:00)
[2019-06-10] MEDS: VITAMIN B COMP/VIT C/FOLIC ACID CAPSULE PO SCH (10:53)
[2019-06-10] MEDS: CALCIUM CIT/VITAMIN D3 200 MG-250 UNITS TABLET PO SCH ×3 (10:53→22:20)
[2019-06-10] MEDS: AZITHROMYCIN 250 MG TABLET PO SCH (10:53)
[2019-06-10] MEDS: NIFEdipine 60 MG ER TABLET PO SCH (10:53)
[2019-06-10] MEDS: SIMVASTATIN 20 MG TABLET PO SCH (10:54)
[2019-06-10] MEDS: CARVEDILOL 12.5 MG TABLET PO SCH ×2 (10:54→22:20)
[2019-06-10] MEDS: ASPIRIN 81 MG CHEWABLE TABLET PO SCH (10:54)
[2019-06-10] MEDS: LOSARTAN POTASSIUM 50 MG TABLET PO SCH (10:54)
[2019-06-10 11:17] VITALS: BP 138/53
[2019-06-10] MEDS ORDERED: VANCOMYCIN HCL 1 GM/D5% WATER 200 ML IV ONE (15:00)
[2019-06-10 16:12] VITALS: BP 134/79
[2019-06-10] MEDS ORDERED: SODIUM CHLORIDE 0.9% 500 ML IV ONE (17:03)
[2019-06-10] MEDS: INSULIN LISPRO 100 UNITS/ML SQ PRN (18:04)
[2019-06-10] MEDS: CEFEPIME HCL 0.5 GM in DEXTROSE 5%-WATER 50 ML IV SCH (19:14)
[2019-06-10 19:51] VITALS: BP 119/67
[2019-06-10] MEDS: INSULIN GLARGINE,HUM.REC.ANLOG 100 UNITS/ML SQ SCH (22:23)
[2019-06-10 23:24] VITALS: BP 127/69
[2019-06-11 04:25] VITALS: BP 151/73
[2019-06-11 07:10] LABS: BASOPHILS % (AUTO) 0.6 % (0.0-2.0); EOSINOPHILS % (AUTO) 2.3 % (1.0-6.0); HEMATOCRIT 35.8 % (41-53); LYMPHOCYTES # (AUTO) 1.5 K/uL (1.0-4.8); LYMPHOCYTES % (AUTO) 13.4 % (22.0-44.0); MEAN CORPUSCULAR HEMOGLOBIN 32.2 pg (26.0-34.0); MEAN CORPUSCULAR HGB CONC 33.5 G/dL (31.0-37.0); MEAN CORPUSCULAR VOLUME 96 fL (80-100); MONOCYTES # (AUTO) 1.3 K/uL (0.1-1.0); MONOCYTES % (AUTO) 11.2 % (2.0-9.0); NEUTROPHILS # (AUTO) 8.2 K/uL (1.8-7.7); NEUTROPHILS % (AUTO) 72.5 % (40.0-70.0); PLATELET COUNT (AUTO) 314 K/uL (150-450); RED BLOOD CELL COUNT(AUTO) 3.73 MIL/uL (4.50-5.90)
[2019-06-11 07:25] LABS: CALCIUM, TOTAL 9.6 mg/dL (8.8-10.5); CREATININE 8.58 mg/dL (0.60-1.30); POTASSIUM 4.2 mmol/L (3.5-5.1)
[2019-06-11 07:41] VITALS: BP 144/74
[2019-06-11] MEDS: OXYGEN THERAPY IH SCH (08:00)
[2019-06-11] MEDS: CALCIUM CIT/VITAMIN D3 200 MG-250 UNITS TABLET PO SCH ×2 (09:13→15:57)
[2019-06-11] MEDS: AZITHROMYCIN 250 MG TABLET PO SCH (09:13)
[2019-06-11] MEDS: CARVEDILOL 12.5 MG TABLET PO SCH (09:13)
[2019-06-11] MEDS: SIMVASTATIN 20 MG TABLET PO SCH (09:13)
[2019-06-11] MEDS: NIFEdipine 60 MG ER TABLET PO SCH (09:13)
[2019-06-11] MEDS: LOSARTAN POTASSIUM 50 MG TABLET PO SCH (09:13)
[2019-06-11] MEDS: ASPIRIN 81 MG CHEWABLE TABLET PO SCH (09:13)
[2019-06-11] MEDS: VITAMIN B COMP/VIT C/FOLIC ACID CAPSULE PO SCH (09:13)
[2019-06-11] MEDS: SEVELAMER CARBONATE 800 MG TABLET PO SCH ×2 (09:14→12:00)
[2019-06-11 12:00] VITALS: BP 138/68
[2019-06-11 13:01] LABS: GLUCOMETER DEV NAME(LOC) 5S.1; GLUCOSE,POINT OF CARE 205 MG/DL (70-110)
[2019-06-11 13:01] LABS: GLUCOMETER DEV NAME(LOC) 5S.1; GLUCOSE,POINT OF CARE 99 MG/DL (70-110)
[2019-06-11 13:02] LABS: GLUCOMETER DEV NAME(LOC) 5S.1; GLUCOSE,POINT OF CARE 165 MG/DL (70-110)
[2019-06-11 13:05] VITALS: BP 138/85
[2019-06-11] MEDS ORDERED: AMOX-426 PO (14:50)
[2019-06-11] MEDS ORDERED: DOXY150T PO (14:50)
[2019-06-11 15:31] VITALS: BP 130/57
[2019-06-11] MEDS: CEFEPIME HCL 0.5 GM in DEXTROSE 5%-WATER 50 ML IV SCH (15:57)
[2019-06-12 08:05] LABS: GLUCOMETER DEV NAME(LOC) 5S.2A; GLUCOSE,POINT OF CARE 171 MG/DL (70-110)
[2019-06-12 08:06] LABS: GLUCOMETER DEV NAME(LOC) 5S.2A; GLUCOSE,POINT OF CARE 123 MG/DL (70-110)
[2019-06-12 08:06] LABS: GLUCOMETER DEV NAME(LOC) 5S.2A; GLUCOSE,POINT OF CARE 199 MG/DL (70-110)
== END 2019-06-11 17:50 | disposition home health service (06) | DRG 871 ==
LOC: EMS 05:58 → 5S 09:54 → 5N 10:10 → ICU 18:00 → 5S 06-04 19:10
PROVIDERS: ADMIT Hospitalist; ATTEND Hospitalist
PROC: 5A1D70Z Performance of Urinary Filtration, Intermittent, Less than 6 Hours Per Day (ICD-10-PCS; 2019-06-03)
PROC: 5A1D70Z Performance of Urinary Filtration, Intermittent, Less than 6 Hours Per Day (ICD-10-PCS; 2019-06-05)
PROC: 5A1D70Z Performance of Urinary Filtration, Intermittent, Less than 6 Hours Per Day (ICD-10-PCS; 2019-06-07)
PROC: 5A1D70Z Performance of Urinary Filtration, Intermittent, Less than 6 Hours Per Day (ICD-10-PCS; principal; 2019-06-10)
DX: A41.9 Sepsis, unspecified organism (principal); N18.6 End stage renal disease; J18.1 Lobar pneumonia, unspecified organism; G93.40 Encephalopathy, unspecified; E87.1 Hypo-osmolality and hyponatremia; J90 Pleural effusion, not elsewhere classified; I12.0 Hypertensive chronic kidney disease with stage 5 chronic kidney disease or end stage renal disease; E78.5 Hyperlipidemia, unspecified; D64.9 Anemia, unspecified; M48.10 Ankylosing hyperostosis [Forestier], site unspecified; E11.22 Type 2 diabetes mellitus with diabetic chronic kidney disease; E11.51 Type 2 diabetes mellitus with diabetic peripheral angiopathy without gangrene; I16.0 Hypertensive urgency; E78.00 Pure hypercholesterolemia, unspecified; Z83.3 Family history of diabetes mellitus; Z82.49 Family history of ischemic heart disease and other diseases of the circulatory system; Z87.01 Personal history of pneumonia (recurrent); Z87.442 Personal history of urinary calculi; Z99.2 Dependence on renal dialysis; Z79.82 Long term (current) use of aspirin
CPT/HCPCS: 36600; 70496; 70551; 71260; 76604; 82805; 83605; 84100; 84145; 86738; 86850; 86900; 86901; 87040; 87081; 87340; 87804; 92526; 92610; 93005; 93880; 94640; 97116; 97162; 97166; 97530; 97535; 99291; G0378; J0131; J0456; J0692; J0696; J1815; J1956; J3370; J3490; J7030; J7040; J7050; J7060

== ENCOUNTER → 2019-11-05 | Outpatient (CLI) | payer MEDICARE, MEDICAID ==
[~2019-11-05] MED LIST changes: +AMOX-426 PO; -BICIT30L PO; -CALC0.253 PO; +DOXY150T5 PO; +FOLI0.8T22 PO; -FOLI1CAP2 PO; -LEVO500 PO; +LOSA-88 PO; -NIFE10 PO; +NIFE60TA82 PO; +SIMV-43 PO
== END | disposition home or self-care (01) ==
LOC: RADMN 11-05 15:52
PROVIDERS: ATTEND Internal Medicine Nephrology
DX: S22.31XA Fracture of one rib, right side, initial encounter for closed fracture (principal); I70.0 Atherosclerosis of aorta; W19.XXXA Unspecified fall, initial encounter; Y93.89 Activity, other specified; Y92.89 Other specified places as the place of occurrence of the external cause; Y99.8 Other external cause status

== ENCOUNTER 2021-12-06 21:01 | Inpatient (IN) | payer MEDICARE, MEDICAID ==
[~2021-12-06] VITALS: Ht 162.6 cm; Wt 69.0 kg
[~2021-12-06 21:01] MED LIST changes: +LOSA-382 PO; -LOSA-88 PO
[2021-12-06] MEDS ORDERED: SODIUM CHLORIDE 0.9% 2,000 ML IV ONE (21:30)
[2021-12-06] MEDS ORDERED: CefTRIAXone 1 GM/DEXTROSE 50 ML IV ONE (21:30)
[2021-12-06] MEDS ORDERED: ACETAMINOPHEN 500 MG TABLET PO ONE (22:00)
[2021-12-06 22:32] LABS: COVID AG,FIA SOURCE NASOPHARYNGEAL
[2021-12-06 22:33] LABS: BASOPHILS % (AUTO) 0.5 % (0.0-2.0); EOSINOPHILS % (AUTO) 0.7 % (1.0-6.0); HEMATOCRIT 27.8 % (41-53); HEMOGLOBIN 9.7 g/dL (13.5-17.5); LYMPHOCYTES % (AUTO) 7.7 % (22.0-44.0); MEAN CORPUSCULAR HEMOGLOBIN 33.5 pg (26.0-34.0); MEAN CORPUSCULAR HGB CONC 34.9 G/dL (31.0-37.0); MEAN CORPUSCULAR VOLUME 96 fL (80-100); MONOCYTES # (AUTO) 1.5 K/uL (0.1-1.0); MONOCYTES % (AUTO) 11.7 % (2.0-9.0); NEUTROPHILS % (AUTO) 79.4 % (40.0-70.0); PLATELET COUNT (AUTO) 182 K/uL (150-450); RED CELL DISTRIBUTION WIDTH 13.4 % (11.5-14.5)
[2021-12-06 22:51] LABS: CREATININE 6.97 mg/dL (0.60-1.30); POTASSIUM 4.3 mmol/L (3.5-5.1)
[2021-12-06 22:54] LABS: ALBUMIN 3.5 g/dL (3.4-5.0); BILIRUBIN,TOTAL 0.8 mg/dL (0.1-1.0); TOTAL PROTEIN, SERUM 7.5 g/dL (6.4-8.2)
[2021-12-06 22:56] LABS: LACTIC ACID 0.8 mmol/L (0.4-2.0)
[2021-12-06 23:03] LABS: INFLUENZA TYPE A NEGATIVE FOR TYPE A (NEGATIVE); INFLUENZA TYPE B NEGATIVE FOR TYPE B (NEGATIVE)
[2021-12-06] MEDS ORDERED: ONDANSETRON HCL 4 MG/2 ML VIAL IVP PRN (23:15)
[2021-12-06] MEDS: HEPARIN SODIUM,PORCINE 5,000 UNITS/ML VIAL SQ SCH (23:28)
[2021-12-06] MEDS: CefTAZidime PENTAHYDRATE 1 GM in DEXTROSE 5%-WATER 50 ML IV SCH (23:29)
[2021-12-06] MEDS ORDERED: VANCOMYCIN HCL 1 GM/D5% WATER 200 ML IV PRN (23:45)
[2021-12-07] MEDS ORDERED: VANCOMYCIN HCL 1 GM/D5% WATER 200 ML IV ONE
[2021-12-07 01:15] VITALS: BP 120/48
[2021-12-07 01:21] LABS: GLUCOMETER DEV NAME(LOC) 5S.1B; GLUCOSE,POINT OF CARE 243 MG/DL (70-110)
[2021-12-07] MEDS: INSULIN GLARGINE,HUM.REC.ANLOG 100 UNITS/ML SQ SCH ×2 (01:28→20:57)
[2021-12-07] MEDS ORDERED: DEXTROSE 50%-WATER 25 GM/50 ML SYRINGE IVP PRN (01:30)
[2021-12-07 04:16] VITALS: BP 122/60
[2021-12-07] MEDS: INSULIN LISPRO 100 UNITS/ML SQ PRN ×2 (05:56→20:56)
[2021-12-07 06:07] LABS: GLUCOMETER DEV NAME(LOC) 5N.1C; GLUCOSE,POINT OF CARE 230 MG/DL (70-110)
[2021-12-07 07:50] VITALS: BP 145/75
[2021-12-07] MEDS: LOSARTAN POTASSIUM 50 MG TABLET PO SCH (08:30)
[2021-12-07] MEDS: ASPIRIN 81 MG DR TABLET PO SCH (08:30)
[2021-12-07] MEDS: HEPARIN SODIUM,PORCINE 5,000 UNITS/ML VIAL SQ SCH ×3 (08:30→23:00)
[2021-12-07] MEDS: VITAMIN B COMP/VIT C/FOLIC ACID CAPSULE PO SCH (08:31)
[2021-12-07] MEDS: SEVELAMER CARBONATE 800 MG TABLET PO SCH ×3 (08:31→18:00)
[2021-12-07] MEDS: SIMVASTATIN 20 MG TABLET PO SCH (08:31)
[2021-12-07] MEDS: CARVEDILOL 12.5 MG TABLET PO SCH ×2 (08:31→20:48)
[2021-12-07] MEDS: NIFEdipine 60 MG ER TABLET PO SCH (08:31)
[2021-12-07] MEDS: CALCIUM CIT/VITAMIN D3 200 MG-250 UNITS TABLET PO SCH ×3 (09:04→20:48)
[2021-12-07 11:46] LABS: GLUCOMETER DEV NAME(LOC) 5N.1C; GLUCOSE,POINT OF CARE 182 MG/DL (70-110)
[2021-12-07 11:47] VITALS: BP 126/63
[2021-12-07] MEDS ORDERED: IOHEXOL 350 MG/ML 100 ML VIAL ONE (11:47)
[2021-12-07] MEDS ORDERED: SODIUM CHLORIDE 0.9% 100 ML ONE (11:47)
[2021-12-07 15:46] VITALS: BP 120/56
[2021-12-07 16:56] LABS: GLUCOMETER DEV NAME(LOC) 5S.1B; GLUCOSE,POINT OF CARE 189 MG/DL (70-110)
[2021-12-07 20:33] VITALS: BP 124/55
[2021-12-07] MEDS: ACETAMINOPHEN 325 MG TABLET PO PRN (20:49)
[2021-12-07] MEDS ORDERED: SODIUM CHLORIDE 0.9% 1,000 ML ONE (21:49)
[2021-12-07] MEDS: CefTAZidime PENTAHYDRATE 1 GM in DEXTROSE 5%-WATER 50 ML IV SCH (23:00)
[2021-12-08] VITALS (15 sets, daily range): BP systolic 119–150; BP diastolic 55–100
[2021-12-08 00:36] LABS: GLUCOMETER DEV NAME(LOC) 5N.1C; GLUCOSE,POINT OF CARE 230 MG/DL (70-110)
[2021-12-08] MEDS: INSULIN LISPRO 100 UNITS/ML SQ PRN ×3 (06:05→22:00)
[2021-12-08 06:53] LABS: BASOPHILS % (AUTO) 0.5 % (0.0-2.0); EOSINOPHILS % (AUTO) 2.6 % (1.0-6.0); HEMATOCRIT 25.9 % (41-53); LYMPHOCYTES % (AUTO) 10.6 % (22.0-44.0); MEAN CORPUSCULAR HGB CONC 34.8 G/dL (31.0-37.0); MEAN CORPUSCULAR VOLUME 98 fL (80-100); MONOCYTES % (AUTO) 9.9 % (2.0-9.0); NEUTROPHILS # (AUTO) 7.4 K/uL (1.8-7.7); NEUTROPHILS % (AUTO) 76.4 % (40.0-70.0); PLATELET COUNT (AUTO) 166 K/uL (150-450); RED BLOOD CELL COUNT(AUTO) 2.64 MIL/uL (4.50-5.90); RED CELL DISTRIBUTION WIDTH 13.6 % (11.5-14.5)
[2021-12-08 07:31] LABS: CALCIUM, TOTAL 8.2 mg/dL (8.8-10.5); CREATININE 9.44 mg/dL (0.60-1.30); POTASSIUM 4.3 mmol/L (3.5-5.1); VANCOMYCIN,RANDOM 16.2 mcg/mL (25.0-50.0)
[2021-12-08] MEDS: LOSARTAN POTASSIUM 50 MG TABLET PO SCH ×2 (09:00→10:33)
[2021-12-08] MEDS: CARVEDILOL 12.5 MG TABLET PO SCH ×3 (09:00→21:57)
[2021-12-08] MEDS: ACETAMINOPHEN 325 MG TABLET PO PRN (10:31)
[2021-12-08] MEDS: SEVELAMER CARBONATE 800 MG TABLET PO SCH ×3 (10:32→21:57)
[2021-12-08] MEDS: EPOETIN ALFA 10,000 UNITS/ML VIAL SQ SCH (10:32)
[2021-12-08] MEDS: HEPARIN SODIUM,PORCINE 5,000 UNITS/ML VIAL SQ SCH ×3 (10:32→23:24)
[2021-12-08] MEDS: SIMVASTATIN 20 MG TABLET PO SCH (10:32)
[2021-12-08] MEDS: CALCIUM CIT/VITAMIN D3 200 MG-250 UNITS TABLET PO SCH ×3 (10:33→21:57)
[2021-12-08] MEDS: VITAMIN B COMP/VIT C/FOLIC ACID CAPSULE PO SCH (10:33)
[2021-12-08] MEDS: ASPIRIN 81 MG DR TABLET PO SCH (10:34)
[2021-12-08] MEDS: NIFEdipine 60 MG ER TABLET PO SCH (10:34)
[2021-12-08 14:06] LABS: GLUCOMETER DEV NAME(LOC) 5S.1B; GLUCOSE,POINT OF CARE 164 MG/DL (70-110)
[2021-12-08 14:06] LABS: GLUCOMETER DEV NAME(LOC) 5S.1B; GLUCOSE,POINT OF CARE 249 MG/DL (70-110)
[2021-12-08] MEDS: INSULIN GLARGINE,HUM.REC.ANLOG 100 UNITS/ML SQ SCH (22:01)
[2021-12-08] MEDS: CefTAZidime PENTAHYDRATE 1 GM in DEXTROSE 5%-WATER 50 ML IV SCH (23:23)
[2021-12-09 03:44] VITALS: BP 129/89
[2021-12-09] MEDS: ACETAMINOPHEN 325 MG TABLET PO PRN (04:00)
[2021-12-09] MEDS: ALBUTEROL SULFATE 2.5 MG/0.5 ML NEB SOLUTION NEB PRN (04:33)
[2021-12-09 06:01] LABS: GLUCOMETER DEV NAME(LOC) 5S.1B; GLUCOSE,POINT OF CARE 141 MG/DL (70-110)
[2021-12-09 06:01] LABS: GLUCOMETER DEV NAME(LOC) 5S.1B; GLUCOSE,POINT OF CARE 203 MG/DL (70-110)
[2021-12-09 06:01] LABS: GLUCOMETER DEV NAME(LOC) 5S.1B; GLUCOSE,POINT OF CARE 106 MG/DL (70-110)
[2021-12-09 08:47] LABS: ABG BASE EXCESS 4.4 mmol/L (-2.0-3.0); ABG CARBOXYHEMOGLOBIN 1.1 % (0.0-1.5); ABG HCO3 28.5 mmol/L (22.0-26.0); ABG METHEMOGLOBIN 0.3 % (0.0-1.5); ABG OXYGEN CONTENT 13.1 mL/dL (15.0-23.0); ABG OXYHEMOGLOBIN 97.6 % (94.0-100.0); ABG PCO2 30 mmHg (35-45); ABG PH 7.561 (7.35-7.450); ABG TOTAL HEMOGLOBIN 9.3 G/dL (12.0-18.0); PO2, ARTERIAL BG 141.1 mmHg (75.0-83.0); SOURCE, BLOOD GAS ARTERIAL; TEMPERATURE, FAHRENHEIT, BG 97.9 FAHREN (96.0-98.6)
[2021-12-09 08:51] LABS: SITE, BLOOD GAS RT RADIAL
[2021-12-09 08:53] LABS: O2 DEVICE,BLOOD GAS BIPAP (ROOM AIR)
[2021-12-09] MEDS ORDERED: MEBROFENIN TC99M/MCL ISOTOPE 1 EA INJ INJ ONE (09:00)
[2021-12-09] MEDS: SEVELAMER CARBONATE 800 MG TABLET PO SCH ×3 (10:00→18:24)
[2021-12-09] MEDS: SIMVASTATIN 20 MG TABLET PO SCH (10:00)
[2021-12-09] MEDS: ASPIRIN 81 MG DR TABLET PO SCH (10:00)
[2021-12-09] MEDS: CALCIUM CIT/VITAMIN D3 200 MG-250 UNITS TABLET PO SCH ×3 (10:00→20:32)
[2021-12-09] MEDS: HEPARIN SODIUM,PORCINE 5,000 UNITS/ML VIAL SQ SCH ×3 (10:00→23:57)
[2021-12-09] MEDS: CARVEDILOL 12.5 MG TABLET PO SCH ×2 (10:00→20:32)
[2021-12-09] MEDS: LOSARTAN POTASSIUM 50 MG TABLET PO SCH (10:00)
[2021-12-09] MEDS: NIFEdipine 60 MG ER TABLET PO SCH (10:00)
[2021-12-09] MEDS: VITAMIN B COMP/VIT C/FOLIC ACID CAPSULE PO SCH (10:00)
[2021-12-09 10:13] VITALS: BP 134/58
[2021-12-09 12:06] LABS: GLUCOMETER DEV NAME(LOC) 5S.1B; GLUCOSE,POINT OF CARE 228 MG/DL (70-110)
[2021-12-09] MEDS: INSULIN LISPRO 100 UNITS/ML SQ PRN ×3 (12:11→20:34)
[2021-12-09 12:42] VITALS: BP 132/78
[2021-12-09] MEDS ORDERED: VANCOMYCIN 1GM/WATER(PEG/NADA) 200 ML IV ONE (13:00)
[2021-12-09] MEDS ORDERED: SODIUM CHLORIDE 0.9% 100 ML ONE (15:41)
[2021-12-09] MEDS ORDERED: IOHEXOL 350 MG/ML 75 ML VIAL ONE (15:41)
[2021-12-09 16:00] VITALS: BP 130/72
[2021-12-09 19:25] VITALS: BP 123/65
[2021-12-09 20:31] LABS: GLUCOMETER DEV NAME(LOC) 5N.1C; GLUCOSE,POINT OF CARE 168 MG/DL (70-110)
[2021-12-09] MEDS: INSULIN GLARGINE,HUM.REC.ANLOG 100 UNITS/ML SQ SCH (20:35)
[2021-12-09 23:12] VITALS: BP 135/56
[2021-12-09] MEDS: CefTAZidime PENTAHYDRATE 1 GM in DEXTROSE 5%-WATER 50 ML IV SCH (23:57)
[2021-12-10 04:11] VITALS: BP 128/77
[2021-12-10 08:05] LABS: BASOPHILS % (AUTO) 0.4 % (0.0-2.0); EOSINOPHILS % (AUTO) 3.4 % (1.0-6.0); HEMATOCRIT 29.9 % (41-53); HEMOGLOBIN 10.3 g/dL (13.5-17.5); LYMPHOCYTES # (AUTO) 0.9 K/uL (1.0-4.8); LYMPHOCYTES % (AUTO) 8.5 % (22.0-44.0); MEAN CORPUSCULAR HEMOGLOBIN 33.9 pg (26.0-34.0); MEAN CORPUSCULAR HGB CONC 34.6 G/dL (31.0-37.0); MEAN CORPUSCULAR VOLUME 98 fL (80-100); MONOCYTES % (AUTO) 9.5 % (2.0-9.0); NEUTROPHILS # (AUTO) 8.1 K/uL (1.8-7.7); NEUTROPHILS % (AUTO) 78.2 % (40.0-70.0); PLATELET COUNT (AUTO) 196 K/uL (150-450); RED BLOOD CELL COUNT(AUTO) 3.05 MIL/uL (4.50-5.90); RED CELL DISTRIBUTION WIDTH 13.3 % (11.5-14.5)
[2021-12-10 08:28] LABS: ALBUMIN 3.2 g/dL (3.4-5.0); BILIRUBIN,TOTAL 0.7 mg/dL (0.1-1.0); CALCIUM, TOTAL 9.7 mg/dL (8.8-10.5); CREATININE 8.06 mg/dL (0.60-1.30); POTASSIUM 3.9 mmol/L (3.5-5.1); TOTAL PROTEIN, SERUM 8.2 g/dL (6.4-8.2)
[2021-12-10] MEDS: HEPARIN SODIUM,PORCINE 5,000 UNITS/ML VIAL SQ SCH ×3 (08:56→23:29)
[2021-12-10] MEDS: VITAMIN B COMP/VIT C/FOLIC ACID CAPSULE PO SCH (08:58)
[2021-12-10] MEDS: EPOETIN ALFA 10,000 UNITS/ML VIAL SQ SCH (08:58)
[2021-12-10] MEDS: SIMVASTATIN 20 MG TABLET PO SCH (08:58)
[2021-12-10] MEDS: ASPIRIN 81 MG DR TABLET PO SCH (08:58)
[2021-12-10] MEDS: CALCIUM CIT/VITAMIN D3 200 MG-250 UNITS TABLET PO SCH ×3 (08:59→20:01)
[2021-12-10] MEDS: SEVELAMER CARBONATE 800 MG TABLET PO SCH ×3 (08:59→18:00)
[2021-12-10] MEDS: ACETAMINOPHEN 325 MG TABLET PO PRN ×2 (08:59→23:56)
[2021-12-10] MEDS: LOSARTAN POTASSIUM 50 MG TABLET PO SCH (09:00)
[2021-12-10] MEDS: NIFEdipine 60 MG ER TABLET PO SCH (09:00)
[2021-12-10] MEDS: CARVEDILOL 12.5 MG TABLET PO SCH ×2 (09:00→20:01)
[2021-12-10 09:28] VITALS: BP 141/75
[2021-12-10 11:49] VITALS: BP 136/70
[2021-12-10] MEDS: INSULIN LISPRO 100 UNITS/ML SQ PRN ×2 (12:10→20:19)
[2021-12-10 12:11] LABS: GLUCOMETER DEV NAME(LOC) 5S.1B; GLUCOSE,POINT OF CARE 123 MG/DL (70-110)
[2021-12-10 12:11] LABS: GLUCOMETER DEV NAME(LOC) 5S.1B; GLUCOSE,POINT OF CARE 204 MG/DL (70-110)
[2021-12-10 15:11] VITALS: BP 138/80
[2021-12-10] MEDS ORDERED: DiphenhydrAMINE HCL 50 MG/ML VIAL IM ONE (17:00)
[2021-12-10 17:15] VITALS: BP 173/68
[2021-12-10] MEDS: ALBUTEROL SULFATE 2.5 MG/0.5 ML NEB SOLUTION NEB PRN (20:00)
[2021-12-10 20:08] VITALS: BP 173/85
[2021-12-10] MEDS: INSULIN GLARGINE,HUM.REC.ANLOG 100 UNITS/ML SQ SCH (20:19)
[2021-12-10 20:22] LABS: GLUCOMETER DEV NAME(LOC) 5N.1C; GLUCOSE,POINT OF CARE 214 MG/DL (70-110)
[2021-12-10 20:22] LABS: GLUCOMETER DEV NAME(LOC) 5N.1C; GLUCOSE,POINT OF CARE 155 MG/DL (70-110)
[2021-12-10 23:01] LABS: GLUCOMETER DEV NAME(LOC) 5N.1C; GLUCOSE,POINT OF CARE 157 MG/DL (70-110)
[2021-12-10] MEDS: CefTAZidime PENTAHYDRATE 1 GM in DEXTROSE 5%-WATER 50 ML IV SCH (23:29)
[2021-12-11] VITALS (15 sets, daily range): BP systolic 144–161; BP diastolic 69–89
[2021-12-11] MEDS: ACETAMINOPHEN 325 MG TABLET PO PRN (05:56)
[2021-12-11] MEDS: INSULIN LISPRO 100 UNITS/ML SQ PRN ×3 (06:00→21:27)
[2021-12-11] MEDS: CARVEDILOL 12.5 MG TABLET PO SCH ×2 (09:00→21:22)
[2021-12-11] MEDS: LOSARTAN POTASSIUM 50 MG TABLET PO SCH (09:00)
[2021-12-11] MEDS: NIFEdipine 60 MG ER TABLET PO SCH (09:00)
[2021-12-11] MEDS: CALCIUM CIT/VITAMIN D3 200 MG-250 UNITS TABLET PO SCH ×3 (09:02→21:22)
[2021-12-11] MEDS: VITAMIN B COMP/VIT C/FOLIC ACID CAPSULE PO SCH (09:03)
[2021-12-11] MEDS: ASPIRIN 81 MG DR TABLET PO SCH (09:03)
[2021-12-11] MEDS: HEPARIN SODIUM,PORCINE 5,000 UNITS/ML VIAL SQ SCH ×2 (09:03→18:09)
[2021-12-11 09:31] LABS: GLUCOMETER DEV NAME(LOC) 5S.1B; GLUCOSE,POINT OF CARE 159 MG/DL (70-110)
[2021-12-11] MEDS: SEVELAMER CARBONATE 800 MG TABLET PO SCH ×3 (09:44→18:00)
[2021-12-11] MEDS: SIMVASTATIN 20 MG TABLET PO SCH (09:46)
[2021-12-11] MEDS: AZITHROMYCIN 500 MG TABLET PO SCH (12:49)
[2021-12-11] MEDS ORDERED: SODIUM CHLORIDE 0.9% 2,000 ML ONE (12:54)
[2021-12-11 16:51] LABS: GLUCOMETER DEV NAME(LOC) 5N.1C; GLUCOSE,POINT OF CARE 176 MG/DL (70-110)
[2021-12-11 18:45] LABS: GLUCOMETER DEV NAME(LOC) 5N.1C; GLUCOSE,POINT OF CARE 146 MG/DL (70-110)
[2021-12-11] MEDS: INSULIN GLARGINE,HUM.REC.ANLOG 100 UNITS/ML SQ SCH (21:25)
[2021-12-11 21:46] LABS: GLUCOMETER DEV NAME(LOC) 5S.1B; GLUCOSE,POINT OF CARE 143 MG/DL (70-110)
[2021-12-12 00:09] VITALS: BP 154/73
[2021-12-12] MEDS: CefTAZidime PENTAHYDRATE 1 GM in DEXTROSE 5%-WATER 50 ML IV SCH (00:26)
[2021-12-12] MEDS: ACETAMINOPHEN 325 MG TABLET PO PRN (00:31)
[2021-12-12 06:27] LABS: BASOPHILS % (AUTO) 0.7 % (0.0-2.0); EOSINOPHILS % (AUTO) 4.8 % (1.0-6.0); HEMATOCRIT 27.9 % (41-53); HEMOGLOBIN 9.7 g/dL (13.5-17.5); LYMPHOCYTES # (AUTO) 1.4 K/uL (1.0-4.8); LYMPHOCYTES % (AUTO) 13.4 % (22.0-44.0); MEAN CORPUSCULAR HEMOGLOBIN 33.7 pg (26.0-34.0); MEAN CORPUSCULAR HGB CONC 34.9 G/dL (31.0-37.0); MEAN CORPUSCULAR VOLUME 97 fL (80-100); MONOCYTES # (AUTO) 1.3 K/uL (0.1-1.0); NEUTROPHILS # (AUTO) 6.9 K/uL (1.8-7.7); NEUTROPHILS % (AUTO) 68.1 % (40.0-70.0); PLATELET COUNT (AUTO) 225 K/uL (150-450); RED BLOOD CELL COUNT(AUTO) 2.88 MIL/uL (4.50-5.90); RED CELL DISTRIBUTION WIDTH 13.3 % (11.5-14.5)
[2021-12-12 06:36] LABS: GLUCOMETER DEV NAME(LOC) 5S.1B; GLUCOSE,POINT OF CARE 110 MG/DL (70-110)
[2021-12-12 07:22] LABS: ALBUMIN 2.9 g/dL (3.4-5.0); BILIRUBIN,TOTAL 0.6 mg/dL (0.1-1.0); C-REACTIVE PROTEIN QUANT 12.88 mg/dL (0.00-0.30); CALCIUM, TOTAL 9.8 mg/dL (8.8-10.5); CREATININE 6.36 mg/dL (0.60-1.30); TOTAL PROTEIN, SERUM 7.9 g/dL (6.4-8.2); VANCOMYCIN,RANDOM 19.6 mcg/mL (25.0-50.0)
[2021-12-12 07:31] VITALS: BP 148/68
[2021-12-12] MEDS: ASPIRIN 81 MG DR TABLET PO SCH (08:41)
[2021-12-12] MEDS: SIMVASTATIN 20 MG TABLET PO SCH (08:41)
[2021-12-12] MEDS: CARVEDILOL 12.5 MG TABLET PO SCH ×2 (08:41→21:22)
[2021-12-12] MEDS: VITAMIN B COMP/VIT C/FOLIC ACID CAPSULE PO SCH (08:42)
[2021-12-12] MEDS: AZITHROMYCIN 500 MG TABLET PO SCH (08:42)
[2021-12-12] MEDS: NIFEdipine 60 MG ER TABLET PO SCH (08:42)
[2021-12-12] MEDS: CALCIUM CIT/VITAMIN D3 200 MG-250 UNITS TABLET PO SCH ×3 (08:43→21:22)
[2021-12-12] MEDS: LOSARTAN POTASSIUM 50 MG TABLET PO SCH (08:43)
[2021-12-12] MEDS: SEVELAMER CARBONATE 800 MG TABLET PO SCH ×3 (08:44→18:50)
[2021-12-12] MEDS: HEPARIN SODIUM,PORCINE 5,000 UNITS/ML VIAL SQ SCH ×3 (08:48→16:00)
[2021-12-12 10:38] LABS: INR 1.1 (0.9-1.1); PROTHROMBIN TIME 11.8 SEC (9.4-11.6)
[2021-12-12 10:44] VITALS: BP 159/78
[2021-12-12] MEDS: INSULIN LISPRO 100 UNITS/ML SQ PRN ×3 (12:19→21:38)
[2021-12-12 15:18] VITALS: BP 144/72
[2021-12-12 16:56] LABS: SPECIMENTYPE,BODY FLUID THORACENTESIS
[2021-12-12 18:00] LABS: APPEARANCE,SPUN,BODY FLUID CLEAR (CLEAR); APPEARANCE,UNSPUN,BODY FLUID CLOUDY (CLEAR); BASOPHILS,BODY FLUID 0 %; COLOR,BODY FLUID YELLOW (LT YELLOW); EOSINOPHILS,BF (ANAL) 0 %; LYMPHOCYTES,BODY FLUID 87 %; MONOCYTES,BODY FLUID 5 %; NEUTROPHILS,BODY FLUID 2 %; OTHER CELLS,BODY FLUID 6; PH, BODY FLUID 9; TOTAL VOLUME,BODY FLUID 450 mL; WBC, BODY FLUID 95 /cu. mm.
[2021-12-12 19:16] VITALS: BP 138/70
[2021-12-12] MEDS: INSULIN GLARGINE,HUM.REC.ANLOG 100 UNITS/ML SQ SCH (21:38)
[2021-12-12 23:55] VITALS: BP 108/61
[2021-12-13] VITALS (15 sets, daily range): BP systolic 102–151; BP diastolic 58–81
[2021-12-13] MEDS: CefTAZidime PENTAHYDRATE 1 GM in DEXTROSE 5%-WATER 50 ML IV SCH ×2 (00:32→23:33)
[2021-12-13] MEDS: HEPARIN SODIUM,PORCINE 5,000 UNITS/ML VIAL SQ SCH ×4 (00:32→23:34)
[2021-12-13 01:01] LABS: GLUCOMETER DEV NAME(LOC) 5S.1B; GLUCOSE,POINT OF CARE 149 MG/DL (70-110)
[2021-12-13 06:59] LABS: CHOL/HDL RATIO 2.2 (4.2-7.3)
[2021-12-13] MEDS ORDERED: SODIUM CHLORIDE 0.9% 250 ML IV ONE (08:00)
[2021-12-13] MEDS: VITAMIN B COMP/VIT C/FOLIC ACID CAPSULE PO SCH (08:35)
[2021-12-13] MEDS: SIMVASTATIN 20 MG TABLET PO SCH (08:35)
[2021-12-13] MEDS: ASPIRIN 81 MG DR TABLET PO SCH (08:35)
[2021-12-13] MEDS: SEVELAMER CARBONATE 800 MG TABLET PO SCH ×3 (08:35→17:35)
[2021-12-13] MEDS: CARVEDILOL 12.5 MG TABLET PO SCH ×2 (08:36→23:07)
[2021-12-13] MEDS: AZITHROMYCIN 500 MG TABLET PO SCH (08:36)
[2021-12-13] MEDS: LOSARTAN POTASSIUM 50 MG TABLET PO SCH (08:36)
[2021-12-13] MEDS: CALCIUM CIT/VITAMIN D3 200 MG-250 UNITS TABLET PO SCH ×3 (08:36→23:06)
[2021-12-13] MEDS: NIFEdipine 60 MG ER TABLET PO SCH (08:36)
[2021-12-13] MEDS: EPOETIN ALFA 10,000 UNITS/ML VIAL SQ SCH (08:42)
[2021-12-13] MEDS: INSULIN LISPRO 100 UNITS/ML SQ PRN ×2 (11:50→17:33)
[2021-12-13 17:41] LABS: GLUCOMETER DEV NAME(LOC) 5N.1C; GLUCOSE,POINT OF CARE 214 MG/DL (70-110)
[2021-12-13 17:41] LABS: GLUCOMETER DEV NAME(LOC) 5N.1C; GLUCOSE,POINT OF CARE 147 MG/DL (70-110)
[2021-12-13 17:41] LABS: GLUCOMETER DEV NAME(LOC) 5N.1C; GLUCOSE,POINT OF CARE 195 MG/DL (70-110)
[2021-12-13 20:31] LABS: GLUCOMETER DEV NAME(LOC) 5S.1B; GLUCOSE,POINT OF CARE 185 MG/DL (70-110)
[2021-12-13 23:10] LABS: GLUCOMETER DEV NAME(LOC) 5N.1C; GLUCOSE,POINT OF CARE 110 MG/DL (70-110)
[2021-12-13] MEDS: INSULIN GLARGINE,HUM.REC.ANLOG 100 UNITS/ML SQ SCH (23:10)
[2021-12-14 00:09] VITALS: BP 98/59
[2021-12-14] MEDS ORDERED: VANCOMYCIN HCL 500 MG in DEXTROSE 5%-WATER 100 ML IV ONE (01:00)
[2021-12-14 05:02] VITALS: BP 125/62
[2021-12-14 06:11] LABS: GLUCOMETER DEV NAME(LOC) 5S.1B; GLUCOSE,POINT OF CARE 110 MG/DL (70-110)
[2021-12-14 07:24] VITALS: BP 124/61
[2021-12-14] MEDS: CALCIUM CIT/VITAMIN D3 200 MG-250 UNITS TABLET PO SCH ×2 (08:21→15:59)
[2021-12-14] MEDS: AZITHROMYCIN 500 MG TABLET PO SCH (08:22)
[2021-12-14] MEDS: ASPIRIN 81 MG DR TABLET PO SCH (08:22)
[2021-12-14] MEDS: LOSARTAN POTASSIUM 50 MG TABLET PO SCH (08:22)
[2021-12-14] MEDS: VITAMIN B COMP/VIT C/FOLIC ACID CAPSULE PO SCH (08:22)
[2021-12-14] MEDS: SIMVASTATIN 20 MG TABLET PO SCH (08:23)
[2021-12-14] MEDS: SEVELAMER CARBONATE 800 MG TABLET PO SCH ×2 (08:23→11:53)
[2021-12-14] MEDS: CARVEDILOL 12.5 MG TABLET PO SCH (08:23)
[2021-12-14] MEDS: NIFEdipine 60 MG ER TABLET PO SCH (08:23)
[2021-12-14] MEDS: HEPARIN SODIUM,PORCINE 5,000 UNITS/ML VIAL SQ SCH ×2 (08:24→15:59)
[2021-12-14] MEDS ORDERED: AZIT500T4 PO (11:05)
[2021-12-14] MEDS ORDERED: LOSA-382 PO (11:05)
[2021-12-14] MEDS ORDERED: CALC1TAB84 PO (11:05)
[2021-12-14] MEDS ORDERED: B CO1CAP6 PO (11:05)
[2021-12-14] MEDS ORDERED: SEVE800T17 PO (11:05)
[2021-12-14] MEDS ORDERED: CARV12 PO (11:05)
[2021-12-14] MEDS ORDERED: INSLAN SQ (11:05)
[2021-12-14] MEDS ORDERED: ASPI-1444 PO (11:05)
[2021-12-14] MEDS ORDERED: NIFE-39 PO (11:05)
[2021-12-14] MEDS ORDERED: SIMV-43 PO (11:05)
[2021-12-14] MEDS: INSULIN LISPRO 100 UNITS/ML SQ PRN ×2 (11:56→17:17)
[2021-12-14 12:07] VITALS: BP 131/48
[2021-12-14 13:21] LABS: GLUCOMETER DEV NAME(LOC) 5N.1C; GLUCOSE,POINT OF CARE 173 MG/DL (70-110)
[2021-12-14 15:36] VITALS: BP 117/58
[2021-12-14 18:06] LABS: GLUCOMETER DEV NAME(LOC) 5S.1B; GLUCOSE,POINT OF CARE 263 MG/DL (70-110)
== END 2021-12-14 18:00 | disposition home or self-care (01) | DRG 871 ==
LOC: EMS 21:01 → 5S 12-07 00:01
PROVIDERS: ADMIT Internal Medicine; ATTEND Internal Medicine
PROC: 5A1D70Z Performance of Urinary Filtration, Intermittent, Less than 6 Hours Per Day (ICD-10-PCS; principal; 2021-12-08)
PROC: 5A09357 Assistance with Respiratory Ventilation, Less than 24 Consecutive Hours, Continuous Positive Airway Pressure (ICD-10-PCS; 2021-12-09)
PROC: 5A1D70Z Performance of Urinary Filtration, Intermittent, Less than 6 Hours Per Day (ICD-10-PCS; 2021-12-10)
PROC: 5A1D70Z Performance of Urinary Filtration, Intermittent, Less than 6 Hours Per Day (ICD-10-PCS; 2021-12-11)
PROC: 0W993ZZ Drainage of Right Pleural Cavity, Percutaneous Approach (ICD-10-PCS; 2021-12-12)
DX: A41.9 Sepsis, unspecified organism (principal); N18.6 End stage renal disease; J96.01 Acute respiratory failure with hypoxia; I12.0 Hypertensive chronic kidney disease with stage 5 chronic kidney disease or end stage renal disease; E87.1 Hypo-osmolality and hyponatremia; E87.3 Alkalosis; J90 Pleural effusion, not elsewhere classified; E11.22 Type 2 diabetes mellitus with diabetic chronic kidney disease; D63.8 Anemia in other chronic diseases classified elsewhere; E11.51 Type 2 diabetes mellitus with diabetic peripheral angiopathy without gangrene; E78.5 Hyperlipidemia, unspecified; Z20.822 Contact with and (suspected) exposure to COVID-19; Z79.4 Long term (current) use of insulin; Z79.899 Other long term (current) drug therapy; Z99.2 Dependence on renal dialysis; Z79.82 Long term (current) use of aspirin
CPT/HCPCS: 32555; 36600; 71045; 71046; 71275; 72148; 74177; 76942; 78226; 80048; 80053; 80061; 80202; 82465; 82805; 82945; 82962; 83036; 83605; 83615; 83690; 83735; 83880; 83986; 84157; 84484; 85025; 85610; 86140; 87015; 87040; 87075; 87081; 87101; 87205; 87206; 87340; 87804; 89051; 90935; 93005; 93306; 94640; 99291; A9537; G0378; J0696; J0713; J0885; J1200; J1644; J1815; J3370; J7030; J7050; J7060; Q9967; 36415-L1; 36415-TC; 87070; C9803; J7613; U0003

== ENCOUNTER 2022-01-10 06:12 | Emergency (ER) | payer MEDICARE, MEDICAID ==
[~2022-01-10] VITALS: Ht 162.6 cm; Wt 59.5 kg
[~2022-01-10 06:12] MED LIST changes: -AMOX-426 PO; +ASPI-1227 PO; +ASPI-1444 PO; -ASPI-825 PO; +B CO1CAP6 PO; +CALC1TAB84 PO; +DOCU-385 PO; -DOXY150T5 PO; +FINA5TAB41 PO; -FOLI0.8T22 PO; +FURO80TA3 PO; +NIFE-39 PO; -NIFE60TA82 PO; +PANT-31 PO; +POLY17PO47 PO; +SEVE0.8P6 PO; -[UNRECOGNIZED DRUG - CODE] PO
[2022-01-10] MEDS ORDERED: SODIUM CHLORIDE 0.9% 2,000 ML IV ONE (06:45)
[2022-01-10] MEDS ORDERED: SODIUM CHLORIDE 0.9% 1,700 ML IV ONE (06:45)
[2022-01-10] MEDS ORDERED: ACETAMINOPHEN 500 MG TABLET PO ONE (06:45)
[2022-01-10] MEDS ORDERED: FOLI1TAB85 PO (06:48)
[2022-01-10] MEDS ORDERED: TAMS-13 PO (06:48)
[2022-01-10] MEDS ORDERED: CARV12.530 PO (06:48)
[2022-01-10] MEDS ORDERED: SENN8.6T20 PO (06:48)
[2022-01-10 07:02] LABS: EOSINOPHILS % (AUTO) 0.4 % (1.0-6.0); HEMATOCRIT 23.7 % (41-53); LYMPHOCYTES # (AUTO) 1.1 K/uL (1.0-4.8); LYMPHOCYTES % (AUTO) 7.4 % (22.0-44.0); MEAN CORPUSCULAR HEMOGLOBIN 32.8 pg (26.0-34.0); MEAN CORPUSCULAR HGB CONC 33.7 G/dL (31.0-37.0); MEAN CORPUSCULAR VOLUME 97 fL (80-100); MONOCYTES # (AUTO) 1.4 K/uL (0.1-1.0); MONOCYTES % (AUTO) 9.6 % (2.0-9.0); NEUTROPHILS # (AUTO) 11.6 K/uL (1.8-7.7); NEUTROPHILS % (AUTO) 81.6 % (40.0-70.0); PLATELET COUNT (AUTO) 329 K/uL (150-450); RED BLOOD CELL COUNT(AUTO) 2.44 MIL/uL (4.50-5.90); RED CELL DISTRIBUTION WIDTH 14.5 % (11.5-14.5)
[2022-01-10 07:07] LABS: COVID AG,FIA SOURCE NASOPHARYNGEAL
[2022-01-10 07:13] LABS: CALCIUM, TOTAL 8.7 mg/dL (8.8-10.5); CREATININE 11.1 mg/dL (0.60-1.30)
[2022-01-10 07:19] LABS: ALBUMIN 2.6 g/dL (3.4-5.0); BILIRUBIN,TOTAL 0.6 mg/dL (0.1-1.0); TOTAL PROTEIN, SERUM 7.5 g/dL (6.4-8.2)
[2022-01-10 07:46] LABS: INFLUENZA TYPE A NEGATIVE FOR TYPE A (NEGATIVE); INFLUENZA TYPE B NEGATIVE FOR TYPE B (NEGATIVE)
[2022-01-10] MEDS ORDERED: CefTRIAXone 1 GM/DEXTROSE 50 ML IV ONE (08:15)
[2022-01-10 10:37] VITALS: BP 130/73
== END 2022-01-10 11:16 | disposition short-term general hospital (02) ==
LOC: EMS 06:14
DX: A41.9 Sepsis, unspecified organism (principal); R65.20 Severe sepsis without septic shock; E11.22 Type 2 diabetes mellitus with diabetic chronic kidney disease; I12.0 Hypertensive chronic kidney disease with stage 5 chronic kidney disease or end stage renal disease; N18.6 End stage renal disease; E11.65 Type 2 diabetes mellitus with hyperglycemia; D64.9 Anemia, unspecified; E78.00 Pure hypercholesterolemia, unspecified; Z20.822 Contact with and (suspected) exposure to COVID-19; Z99.2 Dependence on renal dialysis; Z79.82 Long term (current) use of aspirin; Z79.4 Long term (current) use of insulin
CPT/HCPCS: 36415; 71045; 80053; 82962; 83605; 83880; 84484; 85025; 87040; 87426; 87804; 93005; 96361; 96365; 99291; J0696; J7030